=== PATIENT | female | born 1985 | race Two or more races ===

== ENCOUNTER 2020-04-11 16:39 | Emergency (ER) | payer MEDICAID ==
[~2020-04-11] VITALS: Ht 152.4 cm; Wt 78.0 kg
--- NOTE | 2020-04-11 16:50 | NUR ---
ED Nurse Note: Patient walked in to ER from home c/o fell and has pain in left second toe. Patient presented with steady gait stated was trowing trash 4 days ago and fell. Pt's left secondx toe is swolen, pt AAO x4, VSS at this time.
--- NOTE | 2020-04-11 17:47 | Emergency Room Report ---
History of Present Illness General Chief Complaint: Lower Extremity Injury Source: Patient Present Illness HPI 34-year-old female presents to the emergency department complaining of 9 out of 10 severity localized pain to the left second toe x3 days. Patient status post mechanical trip and fall. Patient reports in the process she injured her toe. She reports some swelling and bruising. She also reports tenderness to palpation. Patient reports walking or standing exacerbates her symptoms. She denies paresthesias. No other aggravating or relieving factors. Allergies: Coded Allergies: PENICILLINS (Verified Allergy, Unknown, 04/11/20) COVID-19 Screening Contact w/high risk pt: No Experienced COVID-19 symptoms?: No COVID-19 Testing performed ELEVATOR REPAIRER HELPER: No Patient History Past Medical History: see triage record Past Surgical History: none Pertinent Family History: none Now: No Reviewed Nursing Documentation: PMH: Agreed; PSxH: Agreed Nursing Documentation-PMH Past Medical History: No Stated History Review of Systems All Other Systems: negative except mentioned in HPI Physical Exam Vital Signs Date Time Temp Pulse Resp B/P (MAP) Pulse Ox O2 Delivery O2 Flow Rate FiO2 04/11/20 16:43 97.3 66 16 118/69 (85) 99 Room Air Sp02 EP Interpretation: reviewed, normal General Appearance: no apparent distress, alert, GCS 15, non-toxic Head: normocephalic, atraumatic Eyes: bilateral eye normal inspection, bilateral eye PERRL ENT: hearing grossly normal, normal voice Neck: full range of motion, no bony tend Respiratory: chest non-tender, lungs clear, normal breath sounds, speaking full sentences Cardiovascular #1: regular rate, rhythm, no edema, normal capillary refill Cardiovascular #2: 2+ dorsalis pedis (L) Musculoskeletal: back normal, normal range of motion, gait/station normal, tender - Tenderness, swelling and slight bruising to the left second toe. Neurologic: alert, motor strength/tone normal, oriented x3, sensory intact, responsive, speech normal, grossly normal Psychiatric: judgement/insight normal Lymphatic: no adenopathy Medical Decision Making PA Attestation Dr. Terry is my supervising Physician whom patient management has been discussed with. Diagnostic Impression: Primary Impression: Toe fracture, left Qualified Codes: S92.912A - Unspecified fracture of left toe(s), initial encounter for closed fracture ER Course 34-year-old female presents to the emergency department complaining of 9 out of 10 severity localized pain to the left second toe x3 days. Patient status post mechanical trip and fall. Patient reports in the process she injured her toe. She reports some swelling and bruising. She also reports tenderness to palpation. Patient reports walking or standing exacerbates her symptoms. She denies paresthesias. No other aggravating or relieving factors. Ddx considered but are not limited to Fracture, dislocation, contusion, Sprain/Strain/Spasm, Vital signs: are WNL, pt. is afebrile H&PE are most consistent with musculoskeletal injury will perform imaging to r/o fractures/dislocations. ORDERS: - X-ray -- Positive for fracture ED INTERVENTIONS: - [place] PO -Chilo tape of the left second and third toes is performed by appraisal technician. Pt. remains neurovascularly intact. -Patient is provided with crutches and instructed on their use DISCHARGE: At this time pt. is stable for d/c to home. Will provide printed patient care instructions, and any necessary prescriptions. Care plan and follow up instructions have been discussed with the patient prior to discharge. Other X-Ray Diagnostic Results Other X-Ray Diagnostic Results : X-Ray ordered: Left Toes # of Views/Limited Vs Complete: 3 View Indication: Pain EP Interpretation: Yes PA Xray: Interpretation reviewed, by supervising MD, and agrees with findings. Interpretation: no dislocation, no soft tissue swelling, other - Positive for fracture of the second proximal phalanx Impression: Other - abnormal Electronically Signed by: Cortney Bradford PA-C Last Vital Signs Date Time Temp Pulse Resp B/P (MAP) Pulse Ox O2 Delivery O2 Flow Rate FiO2 04/11/20 16:43 97.3 66 16 118/69 (85) 99 Room Air Status: improved Disposition: HOME, SELF-CARE Condition: Stable Scripts Ibuprofen* (MOTRIN*) 600 Mg Tablet 600 MG ORAL THREE TIMES A DAY, #20 TAB Prov: Cortney Bradford 04/11/20 Hydrocodone Bit/Acetaminophen 5-325* (NORCO 5-325 TABLET*) 1 Each Tablet 1 TAB ORAL Q6H PRN for FOR PAIN, #15 TAB 0 Refills Prov: Cortney Bradford 04/11/20 Referrals: NOT CHOSEN IPA/,REFERRING (PCP) Mirza Anderson [facility]. [facility] Patient Instructions: Toe Fracture, [id number] Additional Instructions: Take medications as directed. Do not drink alcohol, drive, or operate heavy machinery while taking [place] as this may cause drowsiness. Follow up with an SKILLED TRADES TEACHER in 3-5 days, even if your symptoms have resolved. --Please review list of primary care clinics, if you do not already have a primary care provider who can give you an Orthopedic Referral. Return sooner to ED if new symptoms occur, or current symptoms become worse. - Please note that this Emergency Department Report was dictated using VOYAAfreelance photographer technology software, occasionally this can lead to erroneous entry secondary to interpretation by the dictation equipment. Cortney Bradford Apr 11, 2020 17:47
[2020-04-11] MEDS ORDERED: IBUPROFEN600 M1 ORAL (17:54)
[2020-04-11] MEDS ORDERED: NORCO 5-325 TA1 EAC1 ORAL (17:54)
[2020-04-11 18:07] VITALS: BP 118/69
--- NOTE | 2020-04-11 18:09 | NUR ---
ED Nurse Note: Pt cleared by health care Provider for discharge. DC instructions/prescription was given and explained to pt and verbalized understanding of teachings. All medical deviecs such as ID band removed. Pt is AAO x4, ambulatory and left with all personal belongings.
--- NOTE | 2020-04-11 18:11 | Diagnostic Imaging Report ---
Indication: Left second toe pain and swelling Technique: 3 views of the left second digit Comparison: none Findings: There is a undisplaced fracture, possibly comminuted, of the second middle phalanx. No other fractures. No dislocations. Impression: Positive for second middle phalangeal fracture Findings discussed by phone with Cortney in the emergency room at the time of interpretation
== END 2020-04-11 18:09 | disposition home or self-care (01) ==
LOC: EMR 17:00
DX: S92.912A Unspecified fracture of left toe(s), initial encounter for closed fracture (principal); Z88.0 Allergy status to penicillin; W01.0XXA Fall on same level from slipping, tripping and stumbling without subsequent striking against object, initial encounter; Y92.9 Unspecified place or not applicable
CPT/HCPCS: 73660; Z7502; 99283